=== PATIENT | male | born 1980 | race African-American/Black ===

== ENCOUNTER 2017-11-16 13:01 | Emergency (ER) | payer MEDICAID, OTHER ==
[~2017-11-16] VITALS: Ht 175.3 cm; Wt 90.0 kg
[~2017-11-16 13:01] MED LIST: ALBU6.7H INH
[2017-11-16] MEDS ORDERED: IBUPROFEN 800MG TABLET PO ONE (14:45)
[2017-11-16 16:09] VITALS: BP 132/85
== END 2017-11-16 16:11 | disposition home or self-care (01) ==
LOC: ER 13:31
DX: S20.219A Contusion of unspecified front wall of thorax, initial encounter (principal); S40.012A Contusion of left shoulder, initial encounter; M25.511 Pain in right shoulder; J45.909 Unspecified asthma, uncomplicated; F12.10 Cannabis abuse, uncomplicated; Y04.0XXA Assault by unarmed brawl or fight, initial encounter; Y93.89 Activity, other specified; Y92.89 Other specified places as the place of occurrence of the external cause; Y99.8 Other external cause status
CPT/HCPCS: 71111; 73030; 99284

== ENCOUNTER 2022-01-10 20:29 | Emergency (ER) | payer MEDICAID, OTHER ==
[~2022-01-10] VITALS: Ht 180.3 cm; Wt 91.0 kg
[~2022-01-10 20:29] MED LIST changes: -ALBU6.7H INH; +ALBU6.7H15 INH
[2022-01-10 20:33] VITALS: BP 153/101
[2022-01-11] MEDS ORDERED: TETANUS, DIPHTHERIA, PERTUSSIS VAC/PF 0.5ML (>10YR OLD) IM ONE
[2022-01-11] MEDS ORDERED: LIDOCAINE HCL/PF 1% 10 MG/ML 5ML VIAL INFIL ONE
[2022-01-11] MEDS ORDERED: IBUPROFEN 600MG TABLET PO ONE
[2022-01-11] MEDS ORDERED: BACITRACIN ZINC OINT UDPKT TOP ONE
[2022-01-11] MEDS ORDERED: IBUP-2029 MT (03:15)
[2022-01-11] MEDS ORDERED: T3 PO (03:15)
== END 2022-01-11 03:31 | disposition home or self-care (01) ==
LOC: ER 20:29
DX: S60.111A Contusion of right thumb with damage to nail, initial encounter (principal); J45.909 Unspecified asthma, uncomplicated; F12.10 Cannabis abuse, uncomplicated; W22.8XXA Striking against or struck by other objects, initial encounter; Y93.89 Activity, other specified; Y92.018 Other place in single-family (private) house as the place of occurrence of the external cause
CPT/HCPCS: 73140; 90471; 90715; 99283; J3490; Z7610

== ENCOUNTER 2022-01-14 13:15 | Emergency (ER) | payer OTHER ==
[~2022-01-14] VITALS: Ht 180.3 cm; Wt 91.0 kg
[~2022-01-14 13:15] MED LIST changes: +IBUP-2029 MT; +T3 PO
[2022-01-14 14:31] VITALS: BP 145/81
[2022-01-14] MEDS ORDERED: BACITRACIN ZINC OINT UDPKT TOP ONE (16:30)
[2022-01-14] MEDS ORDERED: IBUP-2029 PO (18:09)
[2022-01-14] MEDS ORDERED: BO1 TP (18:09)
== END 2022-01-14 18:30 | disposition home or self-care (01) ==
LOC: ER 14:20
DX: S00.01XA Abrasion of scalp, initial encounter (principal); S00.81XA Abrasion of other part of head, initial encounter; S20.419A Abrasion of unspecified back wall of thorax, initial encounter; S00.411A Abrasion of right ear, initial encounter; S10.81XA Abrasion of other specified part of neck, initial encounter; F12.10 Cannabis abuse, uncomplicated; J45.909 Unspecified asthma, uncomplicated; Y04.0XXA Assault by unarmed brawl or fight, initial encounter; Y07.04 Female partner, perpetrator of maltreatment and neglect; Y93.89 Activity, other specified; Y92.018 Other place in single-family (private) house as the place of occurrence of the external cause
CPT/HCPCS: 99282; Z7610